=== PATIENT | female | born 1975 | race Caucasian/White ===

== ENCOUNTER → 2016-06-27 | Outpatient (CLI) | payer MEDICARE | LOC: EXRD 08:20 | DX: G95.89 Other specified diseases of spinal cord (principal) | CPT/HCPCS: 72110 ==

== ENCOUNTER 2021-04-05 19:20 | Inpatient (IN) | payer MEDICARE, MEDICAID ==
[~2021-04-05] VITALS: Ht 177.8 cm; Wt 106.6 kg
[~2021-04-05 19:20] MED LIST: ASPIRIN325 MG PO; GABAPENTIN400 MG PO; HYDROCODON-ACE1 EAC2 PO
[2021-04-05 20:08] LABS: HEMOGLOBIN 14.4 gm/dl (12.3-15.3); RED BLOOD COUNT 4.6 M/UL (4.00-5.10)
[2021-04-05 20:12] LABS: WHITE BLOOD COUNT 31.9 K/UL (4.5-11.0)
[2021-04-05 20:33] LABS: BUN/CREATININE RATIO 16 (0-10)
[2021-04-06 04:52] LABS: HEMOGLOBIN 11.8 gm/dl (12.3-15.3); RED BLOOD COUNT 3.8 M/UL (4.00-5.10); WHITE BLOOD COUNT 36.9 K/UL (4.5-11.0)
--- NOTE | 2021-04-06 09:28 | NUR ---
04/06/21 0920am PT STATES SHE WANT TO LEAVE AMA, DR FRAUSTO IS HERE AND HAS TALKED/EDUCATED PT ON DX, STATUS, RISKS OF LEAVING ETC. PT CONT TO STATE "I AM LEAVING, I FEEL BETTER AND I DON'T WANT TO STAY." NURSE HAS ALSO EDUCATED PT ON RISKS OF LEAVING, EXPLAINING WORSENING UTI SYMPTEMS ETC. PT CONTINUES TO STATE SHE IS GOING HOME. AMA PROCESS HAS BEEN EXPLAINED TO PT, PT AGREES TO SIGN AND VOICES UNDERSTANDING OF RISKS. PT IS ALERT/ORIENTED.
[2021-04-06] MEDS ORDERED: TIZANIDINE HCL4 MG PO (09:43)
== END 2021-04-06 09:25 | disposition left against medical advice (07) | DRG 871 ==
LOC: ER1 19:20 → CDU 23:36 → PROG CARE 23:36
PROVIDERS: Emergency Medicine; ADMIT Internal Medicine
PROC: 8E0ZXY6 Isolation (ICD-10-PCS; principal; 2021-04-06)
DX: A41.9 Sepsis, unspecified organism (principal); U07.1 COVID-19; N39.0 Urinary tract infection, site not specified; R65.20 Severe sepsis without septic shock; M54.50 Low back pain, unspecified; G89.29 Other chronic pain; F17.200 Nicotine dependence, unspecified, uncomplicated; Z98.890 Other specified postprocedural states; Z79.899 Other long term (current) drug therapy
CPT/HCPCS: 36415; 80053; 81001; 83605; 83690; 83735; 84100; 84703; 85025; 87040; 93005; 96374; 96375; 99285; J0692; J0696; J1885; J2270; J2405; Q9967; U0002